=== PATIENT | male | born 1980 | race Caucasian/White ===

== ENCOUNTER 2020-10-24 04:30 | Emergency (ER) | payer MEDICAID ==
[~2020-10-24] VITALS: Ht 185.4 cm; Wt 88.5 kg
[2020-10-24 05:00] VITALS: BP_SYST 151
--- NOTE | 2020-10-24 06:15 | NUR ---
Pt wheeled to [facility] for evauation
--- NOTE | 2020-10-24 06:25 | NUR ---
ER Dr. Mcknight at bedside examining patient. Received patient to ER w/ c/o lac to left medial aspect of cheek (next to his left nare) and also c/o bleeding from his mouth. Patient is unable to recollect event that made hime present to the ER. Unknown Ko or LOC. 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 Introduced self to patient, positioned for comfort, guaze placed in between teeth and gum left lateral aspect 2nd to active bleeding. Positioned patient for comfort, continue to monitor.
--- NOTE | 2020-10-24 07:45 | NUR ---
SPOKE WITH OFFICER LAXMI AT [facility], WILL SEND AN OFFICER TO SEE PT.
--- NOTE | 2020-10-24 08:00 | NUR ---
DR GUZMAN AT CHAIRSIDE FOR EVALUATION
--- NOTE | 2020-10-24 08:11 | NUR ---
ADRIANA ARAUJO HERE FOR INTERVIEW, PT STATES THE INCIDENT TOOK PLACE IN [place]. OFFICER SPEAKING WITH DISPATCH AT [place], [place] [employer] TO COME SEE PT.
--- NOTE | 2020-10-24 09:30 | NUR ---
PAULA MOCK HERE OFFICER [place], REPORT NUMBER IS [id number], PT DID NOT WANT TO MAKE A REPORT.
--- NOTE | 2020-10-24 09:47 | NUR ---
DR GUZMAN AT BEDSIDE FOR PROCEDURE
[2020-10-24] MEDS: KETOROLAC TROMETHAMINE 60 MG/2 ML VIAL IM ONE (11:12)
[2020-10-24] MEDS: LIDOCAINE 1% 10 MG/ML, 20 ML MDV INJ ONE (11:13)
[2020-10-24] MEDS: BACITRACIN 1 GM OINT TP ONE (11:13)
[2020-10-24] MEDS ORDERED: KETOROLAC TROMETHAMINE 60 MG/2 ML VIAL IM ONE (11:38)
--- NOTE | 2020-10-24 13:03 | NUR ---
CALM, RESP UNLABORED, SKIN WARM AND DRY. COMMUNICATES CLEARLY, NO DISTRESS
[2020-10-24] MEDS: NACL 0.9% 1,000 ML IV ONE (13:24)
[2020-10-24 16:40] VITALS: BP_SYST 117
--- NOTE | 2020-10-24 16:41 | NUR ---
Patient given written and verbal discharge instructions and verbalizes understanding. ER MD discussed with patient the results and treatment provided. Patient in stable condition. ID arm band removed. IV catheter removed intact and dressing applied, no active bleeding. Rx NORCO given. Patient educated on pain management and to follow up with PMD. Pain Scale 0/10 Opportunity for questions provided and answered. Medication side effect fact sheet provided.
== END 2020-10-24 16:40 | disposition home or self-care (01) ==
LOC: SED 04:30
DX: S02.2XXA Fracture of nasal bones, initial encounter for closed fracture (principal); S01.412A Laceration without foreign body of left cheek and temporomandibular area, initial encounter; F15.90 Other stimulant use, unspecified, uncomplicated; Y35 Legal intervention; Y93.89 Activity, other specified; Y92.89 Other specified places as the place of occurrence of the external cause; Y99.8 Other external cause status
CPT/HCPCS: 12014; 30903; 70450; 70486; 72125; 76376; 96360; 96372; 99285; J1885; J2001; J7030